=== PATIENT | female | born 1980 | race Caucasian/White ===

== ENCOUNTER → 2021-01-10 11:05 | Outpatient (CLI) | payer OTHER, SELFPAY ==
--- NOTE | ~2021-01-10 | US_ITS ---
EXAMINATION: US thyroid EXAM DATE: 01/10/2021 11:24 INDICATION: Thyromegaly. TECHNIQUE: Multiple grayscale and Doppler images of the thyroid were obtained (by a technologist who performed the scan) and subsequently reviewed. Individual nodules and recommendations may be reporte d in accordance with TI-RADS system as designated by the 2017 ACR White Paper TI-RADS committee. The re is no prior study for comparison. FINDINGS: The right thyroid lobe measures 4.1 x 1.3 x 1.2 cm, the left measuring 3.9 x 1.1 x 1.4 cm. There is m oderately diffusely heterogeneous thyroid echogenicity with some increased vascularity. No focal nodu les identified. IMPRESSION: Heterogeneous, hypervascular normal-sized thyroid. Reviewed, dictated and finalized at location A.
== END ==
PROVIDERS: PCP Physician Assistant Medical; Visit Provider Physician Assistant Medical
DX: E01.0 Iodine-deficiency related diffuse (endemic) goiter (principal)
CPT/HCPCS: 76536